=== PATIENT | female | born 2000 | race African-American/Black ===

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

== ENCOUNTER 2018-05-29 15:52 | Emergency (ER) | payer OTHER ==
[2018-05-29 16:04] VITALS: BP 127/62; PULSE 94
--- NOTE | 2018-05-29 17:22 | PDOC ---
History of Present Illness - General Chief Complaint: Pain Stated Complaint: LF BREAST ISSUE Time Seen by Provider: 05/29/18 16:49 History Source: Patient Exam Limitations: No Limitations - History of Present Illness Initial Comments: 05/29/18 17:17 18 year old female 7 months with no significant medical or surgical history presents with reports of feeling a lump in her left breast. Mother is currently breast feeding, and reports history of maternal ca. Also states seen by breast doctor before for same lump and was instructed to return in a couple of months for follow up. Had testing done that was negative for cancer. Timing/Duration: constant Severity: mild Modifying Factors: improves with: other (no intervention) Associated Symptoms: reports: denies symptoms Aspirin Received prior to arrival: Yes: no aspirin today Asa Contraindications(Core Measure): No: Allergy Beta Sanjana Contraindications(Core Measure): Yes: Not Prescribed Beta Sanjana Given by EMS(Core Measure): No Beta Sanjana Taken at Home(Core Measure): No Beta Sanjana Not Indicated at this Time(Core Measure): No Past History - Travel Traveled outside of the country in the last 30 days: No Close contact w/someone who was outside of country & ill: No - Past Medical History Allergies/Adverse Reactions: Allergies Allergy/AdvReac Type Severity Reaction Status Date / Time No Known Allergies Allergy Verified 05/17/17 20:06 Home Medications: Ambulatory Orders NK [No Known Home Medication] 05/17/17 Anemia: Yes Cardiac Disorders: Yes ("Heart Mummur") COPD: No - Immunization History Immunization Up to Date: Yes - Suicide/Smoking/Psychosocial Hx Smoking History: Never smoked Have you smoked in the past 12 months: No Hx Alcohol Use: No Drug/Substance Use Hx: No Substance Use Type: None Review of Systems - Review of Systems Able to Perform ROS?: Yes Is the patient limited Tam[place] proficient: No Constitutional: No: Chills, Fever HEENTM: No: Ear Pain, Hearing Loss, Throat Pain, Throat Swelling Respiratory: No: Orthopnea, Shortness of Breath, Wheezing, Productive cough Cardiac (ROS): Yes: Other (breast lump). No: Chest Pain ABD/GI: No: Constipated, Nausea, Poor Appetite, Poor Fluid Intake, Indigestion : No: Burning, Incontinence, Testicular Swelling Musculoskeletal: No: Back Pain, Muscle Weakness Neurological: No: Headache, Tingling, Dizziness Psychiatric: No: Frequent Crying Endocrine: No: Excessive Sweating *Physical Exam - Vital Signs Last Vital Signs Temp Pulse Resp BP Pulse Ox 94 H 16 127/62 98 05/29/18 16:02 05/29/18 16:02 05/29/18 16:02 05/29/18 16:02 - Physical Exam General Appearance: Yes: Nourished, Appropriately Dressed HEENT: positive: EOMI, Pharynx Normal Neck: positive: Supple. negative: Lymphadenopathy (R), Lymphadenopathy (L) Respiratory/Chest: positive: Lungs Clear, Normal Breath Sounds, Other (no lump palpable in both breast, patient has cystic breast, ) Cardiovascular: positive: Regular Rhythm, Regular Rate Extremity: positive: Normal Capillary Refill Neurologic: positive: counter professional II-XII NML intact Moderate Sedation - Procedure Monitoring Vital Signs: Procedure Monitoring Vital Signs Temperature Pulse Rate 94 H 05/29/18 16:02 Respiratory Rate 16 05/29/18 16:02 Blood Pressure 127/62 05/29/18 16:02 O2 Sat by Pulse Oximetry (%) 98 05/29/18 16:02 Medical Decision Making - Medical Decision Making 05/29/18 17:21 18 year old female 7 months with no significant medical or surgical history presents with reports of feeling a lump in her left breast. patient referred back to breast specialist for follow up and instructed to follow up with assembler engine as previously scheduled 06/04/18 *DC/Admit/Observation/Transfer Diagnosis at time of Disposition: Pain aggravated by breast feeding - Discharge Dispostion Disposition: HOME Condition at time of disposition: Good Decision to Admit order: No - Referrals Referrals: Peggy Naik MD [Staff Physician] - Call tomorrow (follow up with making line worker at 06/04/18 as previously scheduled ) - Patient Instructions Printed Discharge Instructions: How to Perform a Breast Self-examination Additional Instructions: Please call breast specialist and schedule a follow up appointment Follow up with assembler engine as previously scheduled - Post Discharge Activity Forms/Work/School Notes: Back to Work
== END 2018-05-29 17:29 | disposition home or self-care (01) ==
LOC: JERFT 15:52
DX: O91.23 Nonpurulent mastitis associated with lactation (principal)
CPT/HCPCS: 99281-25

== ENCOUNTER 2018-07-21 04:13 | Observation (INO) | payer OTHER ==
--- NOTE | 2018-07-21 04:22 | PDOC ---
History of Present Illness - General Chief Complaint: Pain Stated Complaint: Vomiting/Diarrhea/ABD PAIN Time Seen by Provider: 07/21/18 04:22 - History of Present Illness Initial Comments: 07/21/18 04:45 The patient is a 18 year old female with a history of anemia who presents for evaluation of nausea, vomiting, diarrhea. The patient reports multiple episodes of non-bloody, non-bilious, vomiting with associated nausea and non- bloody diarrhea beginning yesterday evening prompting her presentation to the ED for further evaluation. She reports some associated crampy abdominal pain and complains of persistent nausea. She notes that she is currently on her menstrual period and otherwise denies fevers, chills, SOB, chest pain, vaginal discharge, or changes with urination. Past History - Past Medical History Allergies/Adverse Reactions: Allergies Allergy/AdvReac Type Severity Reaction Status Date / Time No Known Allergies Allergy Verified 07/21/18 04:28 Home Medications: Ambulatory Orders NK [No Known Home Medication] 05/17/17 Anemia: Yes Cardiac Disorders: Yes ("Heart Mummur") COPD: No - Immunization History Immunization Up to Date: Yes - Suicide/Smoking/Psychosocial Hx Smoking History: Never smoked Have you smoked in the past 12 months: No Hx Alcohol Use: No Drug/Substance Use Hx: No Substance Use Type: None Review of Systems - Review of Systems Comments:: 07/21/18 04:47 Constitutional: No fevers, chills, fatigue, malaise HEENT: No Rhinorrhea, nasal congestion, visual changes Cardiovascular: No chest pain, syncope, palpitations, lightheadedness Respiratory: No Cough, SOB, Hemoptysis, Gastrointestinal: Abdominal pain, Nausea, Vomiting, Diarrhea, No Constipation or Melena Genitourinary: No Dysuria, Frequency, Urgency, Hesitancy, Hematuria, Flank pain , vaginal discharge Musculoskeletal: No Myalgia, arthralgia Skin: No rashes, itching, bruising, pallor Neurologic: No Headache, Dizziness, Numbness, Weakness, or Tingling Psychiatric: No Hallucinations. No SI or HI *Physical Exam - Physical Exam Comments: 07/21/18 04:48 General Appearance: Nourished. No Apparent Distress HEENT: No Pharyngeal Erythema, Tonsillar Exudate, Tonsillar Erythema Neck: No Cervical Lymphadenopathy Respiratory/Chest: Lungs Clear, Normal Breath Sounds. No Crackles, Rales, Rhonchi, Wheezing Cardiovascular: Regular Rhythm, Regular Rate. No Murmur, Gallops, Rubs Gastrointestinal/Abdominal: Normal Bowel Sounds, Soft. Mild diffuse discomfort with palpation. No Guarding, Rebound, Tenderness Musculoskeletal: No CVA Tenderness Extremity: Normal Capillary Refill Integumentary: Normal Color, Dry, Warm Neurologic: Fully Oriented, Alert, Normal Mood/Affect, Normal Response, ED Treatment Course - LABORATORY CBC & Chemistry Diagram: 07/21/18 04:58 07/21/18 04:58 Medical Decision Making - Medical Decision Making 07/21/18 04:48 The patient is a 18 year old female with a history of anemia who presents for evaluation of nausea, vomiting, diarrhea. Differential includes but is not limited to: Gastroenteritis, Pancreatitis, UTI, Infectious, Metabolic Derangement. Given the patient's history and physical exam, we will obtain a cbc, cmp, lipase, serum preg, UA to evaluate further. We will treat with iv fluids, zofran, pepcid and continue to monitor and reassess while here in the ED. 07/21/18 06:46 CBC, lipase, serum preg is unremarkable. CMP demonstrates an elevated t.bili to 1.5. The patient continues to report nausea with mild improvement in her symptoms. We will obtain a gallbladder US to evaluate further and treat with reglan and iv fluids. We will continue to monitor and reassess while here in the ED. *DC/Admit/Observation/Transfer - Discharge Dispostion Condition at time of disposition: Fair - Referrals - Patient Instructions - Post Discharge Activity
[2018-07-21] MEDS ORDERED: ONDANSETRON 4 MG/2 ML VIAL IVPUSH ONE ×2 (04:27→09:13)
[2018-07-21] MEDS ORDERED: FAMOTIDINE 20 MG/50 ML IVPB 20 MG/50 ML MG IVPB ONE ×2 (04:27→06:05)
[2018-07-21] MEDS ORDERED: SODIUM CHLORIDE 1,000 ML IV STA ×2 (04:27→06:06)
[2018-07-21] MEDS ORDERED: ONDANSETRON 4 MG/2 ML VIAL ONE ×2 (04:55→09:25)
[2018-07-21 05:05] LABS: BASO % 0.5 % (0-2.0); EOS % 0.7 % (0-4.5); HEMATOCRIT 42.1 % (32.4-45.2); HEMOGLOBIN 14.3 GM/dL (10.7-15.3); LYMPH % 7.5 % (8-40); MCH 29.4 pg (25.7-33.7); MCHC 33.9 g/dl (32.0-36.0); MEAN CELL VOLUME 86.7 fl (80-96); MEAN PLT VOLUME 8.1 fl (7.5-11.1); MONO % 6.6 % (3.8-10.2); NEUT % 84.7 % (42.8-82.8); PLATELET COUNT 186 K/MM3 (134-434); RBC 4.85 M/mm3 (3.60-5.2); RDW 14.1 % (11.6-15.6)
--- NOTE | 2018-07-21 05:06 | PDOC ---
Attending Attestation - Resident Resident Name: Jonathan Olivarez - ED Attending Attestation I have performed the following: I have examined & evaluated the patient, The case was reviewed & discussed with the resident, I agree w/resident's findings & plan - HPI HPI: 07/21/18 05:06 N/V/D started in the evening and she comes for hydration and possibly admission. No other PMHx. - Physicial Exam PE: 07/21/18 06:11 Agree iw resident exam - Medical Decision Making 07/21/18 06:05 T bili is elevated and pt has nausea and vomiting. 07/21/18 06:11 Pt has mild diffuse pain. We will get a sono of the abd to eval the liver and GC as well as the bile ducts.
[2018-07-21 05:45] LABS: ALBUMIN 3.8 g/dl (3.4-5.0); ALK PHOS 78 U/L (45-117); ANION GAP 7 MMOL/L (8-16); BILIRUBIN,TOTAL 1.5 mg/dL (0.2-1); BLOOD UREA NITROGEN 16 mg/dL (7-18); CHLORIDE 112 mmol/L (98-107); CO2 23 mmol/L (21-32); CREATININE 0.7 mg/dL (0.55-1.3); GLUCOSE,RANDOM 110 mg/dL (74-106); LIPASE 133 U/L (73-393); POTASSIUM 4.1 mmol/L (3.5-5.1); SGOT/AST 19 U/L (15-37); SGPT/ALT 23 U/L (13-61); SODIUM 142 mmol/L (136-145); TOT PROT 7.4 g/dl (6.4-8.2)
[2018-07-21] MEDS ORDERED: METOCLOPRAMIDE HCL INJECTION 10 MG/2 ML VIAL IVPUSH ONE (06:06)
[2018-07-21] MEDS ORDERED: METOCLOPRAMIDE HCL INJECTION 10 MG/2 ML VIAL ONE (06:49)
--- NOTE | 2018-07-21 08:06 | PDOC ---
*Physical Exam - Vital Signs Last Vital Signs Temp Pulse Resp BP Pulse Ox 98.7 F 107 H 19 113/65 99 07/21/18 04:13 07/21/18 04:13 07/21/18 04:13 07/21/18 04:13 07/21/18 04:13 ED Treatment Course - LABORATORY CBC & Chemistry Diagram: 07/21/18 04:58 07/21/18 04:58 - ADDITIONAL ORDERS Additional order review: Laboratory Results 07/21/18 07/21/18 04:58 04:58 Sodium 142 Potassium 4.1 Chloride 112 H Carbon Dioxide 23 Anion Gap 7 L BUN 16 Creatinine 0.7 Creat Clearance w eGFR 106.68 Random Glucose 110 H Calcium 9.0 Total Bilirubin 1.5 H AST 19 ALT 23 Alkaline Phosphatase 78 Total Protein 7.4 Albumin 3.8 Lipase 133 Serum , Qual Negative 07/21/18 04:58 RBC 4.85 MCV 86.7 MCHC 33.9 RDW 14.1 MPV 8.1 Neutrophils % 84.7 H D Lymphocytes % 7.5 L D Monocytes % 6.6 Eosinophils % 0.7 Basophils % 0.5 - Medications Given in the ED: ED Medications Discontinued Medications Generic Name Dose Route Start Last Admin Trade Name Freq PRN Reason Stop Dose Admin Famotidine/Sodium Chloride 20 mg in 50 mls @ 100 mls/hr 07/21/18 04:27 06:16 Pepcid 20 Mg Premixed Ivpb - IVPB 07/21/18 04:56 100 mls/hr ONCE ONE Administration Sodium Chloride 1,000 mls @ 1,000 mls/hr 07/21/18 04:27 07/21/18 05:04 Normal Saline - IV 07/21/18 05:26 1,000 mls/hr ASDIR STA Administration Sodium Chloride 1,000 mls @ 1,000 mls/hr 07/21/18 06:06 07/21/18 06:16 Normal Saline - IV 07/21/18 07:05 1,000 mls/hr ASDIR STA Administration Metoclopramide HCl 10 mg 07/21/18 06:06 07/21/18 06:54 Reglan Injection - IVPUSH 07/21/18 06:07 10 mg ONCE ONE Administration Ondansetron HCl 4 mg 07/21/18 04:27 07/21/18 05:04 Zofran Injection IVPUSH 07/21/18 04:28 4 mg ONCE ONE Administration Medical Decision Making - Medical Decision Making Pt was signed out to me by resident Dr. Olivarez, who explained the presentation , ED course, any pending results, and needed interventions. Pending results include RUQ US. Pt is currently stable and is lying comfortably. 07/21/18 07:56 Pt being taken for US. 07/21/18 08:06 US showed no acute pathology. Provided 25 mg IV benadryl and 4 mg IV zofran for continued nausea. Will provide 1 g ofirmev for pain. Despite no abdominal tenderness to palpation, pt continues to have RUQ pain, and difficulty tolerating PO intake. Sending pt for CT abd/pelvis with IV contrast to r/o any other abdominal pathology. 07/21/18 11:[address] Goins for admission to observation as pt has intractable pain. 07/21/18 11:23 Pt was admitted to Dr. Goins for observation and continued pain control. CT abd/pelvis showed no acute pathology. 07/21/18 13:20 Providing 15 mg IV toradol for pt continued pain. Pending admission orders. 07/21/18 14:04 *DC/Admit/Observation/Transfer Diagnosis at time of Disposition: RUQ abdominal pain - Discharge Dispostion Condition at time of disposition: Stable Decision to Admit order: Yes - Referrals - Patient Instructions - Post Discharge Activity
[2018-07-21 08:16] LABS: URINE APPEARANCE CLEAR; URINE BILIRUBIN NEGATIVE (NEGATIVE); URINE COLOR YELLOW; URINE GLUCOSE (UA) NEGATIVE (NEGATIVE); URINE KETONE NEGATIVE (NEGATIVE); URINE LEUK ESTERASE NEGATIVE (NEGATIVE); URINE NITRITE NEGATIVE (NEGATIVE); URINE PROTEIN NEGATIVE (NEGATIVE); URINE UROBILINOGEN 0.2 mg/dL (0.2-1.0)
[2018-07-21] MEDS ORDERED: ACETAMINOPHEN 1000 MG/100 ML VIAL (NON FORMULARY) IVPB ONE (11:16)
[2018-07-21] MEDS ORDERED: ACETAMINOPHEN INJECTION 100 ML IVPB ONE (11:39)
[2018-07-21] MEDS ORDERED: KETOROLAC TROMETHAMINE 15 MG/ML VIAL IVPUSH ONE (13:26)
[2018-07-21] MEDS ORDERED: KETOROLAC TROMETHAMINE 15 MG/ML VIAL ONE (13:36)
[2018-07-21 16:14] VITALS: BMI 28.3
--- NOTE | 2018-07-21 17:00 | HP ---
Admitting History and Physical - Primary Care Physician PCP: Zakiya Goins - Admission History of Present Illness: 18 year old female with a history of anemia who presents for evaluation of nausea, vomiting, diarrhea. The patient reports multiple episodes of non-bloody , non-bilious, vomiting with associated nausea and non-bloody diarrhea beginning yesterday evening prompting her presentation to the ED for further evaluation. She reports some associated crampy abdominal pain and complains of persistent nausea. She notes that she is currently on her menstrual period and otherwise denies fevers, chills, SOB, chest pain, vaginal discharge, or changes with urination. - Past Medical History ...LMP: 07/20/18 ...LMP Comment: pt on control, mild bleeding ...: No - Smoking History Smoking history: Never smoked Have you smoked in the past 12 months: No - Alcohol/Substance Use Hx Alcohol Use: No Home Medications - Allergies Allergies/Adverse Reactions: Allergies Allergy/AdvReac Type Severity Reaction Status Date / Time No Known Allergies Allergy Verified 07/21/18 04:28 - Home Medications Home Medications: Ambulatory Orders NK [No Known Home Medication] 05/17/17 Physical Examination Vital Signs: Vital Signs Temperature 98.9 F 07/21/18 16:10 Pulse Rate 95 H 07/21/18 16:10 Respiratory Rate 18 07/21/18 16:10 Blood Pressure 120/79 07/21/18 16:10 O2 Sat by Pulse Oximetry (%) 99 07/21/18 04:13 Constitutional: Yes: No Distress HENT: Yes: Atraumatic Neck: Yes: Supple Cardiovascular: Yes: Regular Rate and Rhythm Respiratory: Yes: CTA Bilaterally Gastrointestinal: Yes: Normal Bowel Sounds Extremities: Yes: WNL Edema: No Peripheral Pulses WNL: Yes Neurological: Yes: Alert, Oriented Labs: CBC, BMP 07/21/18 04:58 07/21/18 04:58 Problem List - Problems (1) RUQ abdominal pain Assessment/Plan: resolved tolerating diet could be just indigestion no diarrhea no vomitting Code(s): R10.11 - RIGHT UPPER QUADRANT PAIN (2) Nausea and vomiting Assessment/Plan: resolved prn zofran ivf Code(s): R11.2 - NAUSEA WITH VOMITING, UNSPECIFIED Assessment/Plan Laboratory Tests 07/21/18 07/21/1819 04:58 04:58 04:58 WBC 9.0 RBC 4.85 Hgb 14.3 Hct 42.1 D MCV 86.7 MCH 29.4 MCHC 33.9 RDW 14.1 Plt Count 186 MPV 8.1 Absolute Neuts (auto) 7.6 Neutrophils % 84.7 H D Lymphocytes % 7.5 L D Monocytes % 6.6 Eosinophils % 0.7 Basophils % 0.5 Nucleated RBC % 0 Sodium 142 Potassium 4.1 Chloride 112 H Carbon Dioxide 23 Anion Gap 7 L BUN 16 Creatinine 0.7 Creat Clearance w eGFR 106.68 Random Glucose 110 H Calcium 9.0 Total Bilirubin 1.5 H AST 19 ALT 23 Alkaline Phosphatase 78 Total Protein 7.4 Albumin 3.8 Lipase 133 Serum , Qual Negative Urine Color Urine Appearance Urine pH Ur Specific [place] Urine Protein Urine Glucose (UA) Urine Ketones Urine Blood Urine Nitrite Urine Bilirubin Urine Urobilinogen Ur Leukocyte Esterase 07/21/18 07:23 WBC RBC Hgb Hct MCV MCH MCHC RDW Plt Count MPV Absolute Neuts (auto) Neutrophils % Lymphocytes % Monocytes % Eosinophils % Basophils % Nucleated RBC % Sodium Potassium Chloride Carbon Dioxide Anion Gap BUN Creatinine Creat Clearance w eGFR Random Glucose Calcium Total Bilirubin AST ALT Alkaline Phosphatase Total Protein Albumin Lipase Serum , Qual Urine Color Yellow Urine Appearance Clear Urine pH 6.0 Ur Specific [place] 1.016 Urine Protein Negative Urine Glucose (UA) Negative Urine Ketones Negative Urine Blood Negative Urine Nitrite Negative Urine Bilirubin Negative Urine Urobilinogen 0.2 Ur Leukocyte Esterase Negative
[2018-07-21] MEDS ORDERED: ONDANSETRON 4 MG/2 ML VIAL IVPB PRN (17:02)
[2018-07-21] MEDS ORDERED: SODIUM CHLORIDE 1,000 ML IV SCH (17:15)
[2018-07-22 07:28] LABS: BASO % 0.3 % (0-2.0); EOS % 1.4 % (0-4.5); HEMATOCRIT 38.2 % (32.4-45.2); HEMOGLOBIN 12.8 GM/dL (10.7-15.3); LYMPH % 41.3 % (8-40); MCH 29.4 pg (25.7-33.7); MCHC 33.5 g/dl (32.0-36.0); MEAN CELL VOLUME 87.6 fl (80-96); MEAN PLT VOLUME 8.6 fl (7.5-11.1); MONO % 12.1 % (3.8-10.2); NEUT % 44.9 % (42.8-82.8); PLATELET COUNT 164 K/MM3 (134-434); RBC 4.36 M/mm3 (3.60-5.2); RDW 14.4 % (11.6-15.6); WHITE BLOOD COUNT 4.5 K/mm3 (4.0-10.0)
[2018-07-22 07:56] LABS: ALBUMIN 3.2 g/dl (3.4-5.0); ALK PHOS 75 U/L (45-117); ANION GAP 7 MMOL/L (8-16); BILIRUBIN,TOTAL 1.5 mg/dL (0.2-1); BLOOD UREA NITROGEN 9 mg/dL (7-18); CALCIUM 8.5 mg/dL (8.5-10.1); CHLORIDE 113 mmol/L (98-107); CO2 25 mmol/L (21-32); CREATININE 0.8 mg/dL (0.55-1.3); GLUCOSE,RANDOM 81 mg/dL (74-106); POTASSIUM 3.6 mmol/L (3.5-5.1); SGOT/AST 16 U/L (15-37); SGPT/ALT 20 U/L (13-61); SODIUM 144 mmol/L (136-145)
--- NOTE | 2018-07-22 14:17 | DS ---
Physical Examination Vital Signs: Vital Signs Temperature 98.8 F 07/22/18 08:02 Pulse Rate 86 07/22/18 08:02 Respiratory Rate 17 07/22/18 09:00 Blood Pressure 112/60 07/22/18 08:02 O2 Sat by Pulse Oximetry (%) 99 07/22/18 09:00 Constitutional: Yes: No Distress HENT: Yes: Atraumatic Neck: Yes: Supple Cardiovascular: Yes: Regular Rate and Rhythm Respiratory: Yes: CTA Bilaterally Gastrointestinal: Yes: Normal Bowel Sounds Extremities: Yes: WNL Edema: No Neurological: Yes: Alert, Oriented Labs: CBC, BMP 07/22/18 06:17 07/22/18 06:17 Discharge Summary Reason For Visit: RIGHT UPPPER QUADRANT ABDOMINAL PAIN Current Active Problems RUQ abdominal pain (Acute) Condition: Stable - Instructions Disposition: HOME - Home Medications Comprehensive Discharge Medication List: Ambulatory Orders NK [No Known Home Medication] 05/17/17
[2018-07-22 14:28] VITALS: BP 125/75; PULSE 79; TEMP 99.3
== END 2018-07-22 15:05 | disposition home or self-care (01) ==
LOC: JER 04:13 → JERBED 10:57 → J7W 16:01
PROVIDERS: ADMIT Internal Medicine; ATTEND Internal Medicine
PROC: 3E033GC Introduction of Other Therapeutic Substance into Peripheral Vein, Percutaneous Approach (ICD-10-PCS; principal; 2018-07-21)
PROC: 3E033NZ Introduction of Analgesics, Hypnotics, Sedatives into Peripheral Vein, Percutaneous Approach (ICD-10-PCS; 2018-07-21)
PROC: 3E0333Z Introduction of Anti-inflammatory into Peripheral Vein, Percutaneous Approach (ICD-10-PCS; 2018-07-21)
PROC: 3E0337Z Introduction of Electrolytic and Water Balance Substance into Peripheral Vein, Percutaneous Approach (ICD-10-PCS; 2018-07-21)
DX: R10.11 Right upper quadrant pain (principal); R11.2 Nausea with vomiting, unspecified
CPT/HCPCS: 36415; 74177-TC; 76705-TC; 80053; 81003; 83690; 84703; 85025; 87086; 96361; 96374; 96375; 96376; 99284-25; G0378; J0131; J7030

== ENCOUNTER 2021-09-24 17:47 | Emergency (ER) | payer OTHER ==
[2021-09-24 18:04] VITALS: BP 118/73; PULSE 88; TEMP 97; BMI 25.6
[2021-09-24] MEDS ORDERED: AZITHROMYCIN 500 MG TABLET PO ONE (20:26)
[2021-09-24] MEDS ORDERED: AZITHROMYCIN 250 MG TABLET ONE (20:42)
[2021-09-24] MEDS ORDERED: LIDOCAINE HCL 1%, 10 MG/ML (20ML VIAL) ONE (20:53)
[2021-09-24] MEDS ORDERED: metroNIDAZOLE 250 MG TABLET PO ONE (21:08)
[2021-09-24] MEDS ORDERED: metroNIDAZOLE 250 MG TABLET ONE (21:09)
== END 2021-09-24 22:11 | disposition home or self-care (01) ==
LOC: JERFT 17:47
PROC: 3E023GC Introduction of Other Therapeutic Substance into Muscle, Percutaneous Approach (ICD-10-PCS; principal; 2021-09-24)
DX: N89.8 Other specified noninflammatory disorders of vagina (principal)
CPT/HCPCS: 36415; 84703; 87491; 87591; 87661; 99284-25